=== PATIENT | male | born 1985 | race Caucasian/White ===

== ENCOUNTER 2019-09-12 10:11 | Emergency (ER) | payer OTHER ==
[~2019-09-12] VITALS: Ht 185.4 cm; Wt 72.7 kg
[2019-09-12 10:36] LABS: BASO % 0.4 % (0.0-1.0); EOS # 0.2 10^3/uL (0.0-0.5); EOS % 1.6 % (0.0-3.0); HEMATOCRIT 43.9 % (42.0-52.0); HEMOGLOBIN 14.6 g/dl (13.5-17.5); LYMPH % 17.9 % (24.0-44.0); MEAN CORPUSCULAR HEMOGLOBIN 29.9 pg (27.0-33.0); MEAN CORPUSCULAR HGB CONC 33.3 g/dl (32.0-36.5); MONO # 0.5 10^3/uL (0.0-0.8); MONO % 4.3 % (0.0-5.0); NEUTROPHILS # 8.3 10^3/uL (1.5-8.5); NEUTROPHILS % 75.5 % (36.0-66.0); PLATELET COUNT, AUTOMATED 186 10^3/uL (150-450); RED BLOOD COUNT 4.88 10^6/uL (4.30-6.10)
[2019-09-12 11:06] LABS: ALBUMIN 4.5 GM/DL (3.2-5.2); ALT/SGPT 22 U/L (12-78); BILIRUBIN,DIRECT 0.1 MG/DL (0.0-0.2); BILIRUBIN,TOTAL 0.3 MG/DL (0.2-1.0); BLOOD UREA NITROGEN 19 MG/DL (7-18); CALCIUM LEVEL 9.2 MG/DL (8.5-10.1); CARBON DIOXIDE LEVEL 30 MEQ/L (21-32); CHLORIDE LEVEL 105 MEQ/L (98-107); CK-MB VALUE MASS 2.1 NG/ML (<3.6); CPK CREATINE PHOSPHOKINASE 154 U/L (39-308); CREATININE FOR GFR 1.11 MG/DL (0.70-1.30); GLOMERULAR FILTRATION RATE > 60.0 (>60); GLUCOSE, FASTING 103 MG/DL (70-100); LIPASE 81 U/L (73-393); MB/CK RELATIVE INDEX 1.36 (< OR =4); POTASSIUM SERUM 4.1 MEQ/L (3.5-5.1); SODIUM LEVEL 138 MEQ/L (136-145); TOTAL PROTEIN 7.8 GM/DL (6.4-8.2); TROPONIN I < 0.02 NG/ML (< 0.10)
[2019-09-12] MEDS ORDERED: GI COCKTAIL 50ML BTL(HYOSCYAMINE/MAALOX/LIDOCAINE VISCOUS)(1:3:1) PO ONE (11:45)
--- NOTE | 2019-09-12 12:05 | REP ---
Portable chest x-ray: Two views presented. History: Chest pain. No comparison study. Findings: The lungs are well inflated and clear. Pleural angles are sharp. Heart size is normal. There is a mild dextroconvex thoracic curvature. There is an old healed displaced midshaft fracture of the left clavicle. Pulmonary vasculature is not increased. Impression: Old healed fracture left clavicle. No active disease. Electronically Signed by Edin Cochran MD 09/12/2019 11:56 A
[2019-09-12 13:25] LABS: CK-MB VALUE MASS 1.6 NG/ML (<3.6); CPK CREATINE PHOSPHOKINASE 128 U/L (39-308); MB/CK RELATIVE INDEX 1.25 (< OR =4); TROPONIN I < 0.02 NG/ML (< 0.10)
[2019-09-12] MEDS ORDERED: PROT1TAB2 PO (13:57)
[2019-09-12 14:00] VITALS: BP 146/66
--- NOTE | 2019-09-13 05:29 | ECGEPIP ---
[facility] - ED Test Date: 2019-09-12 Pat Name: YULIANA TORRES Department: Room: - Gender: Male Plan Consultant: [email or web address] : 1985 Requested By: Baudilio Allison Order Number: [id number] Reading MD: Baudilio Garcia Measurements Intervals [place] Rate: 82 P: 69 [place]: 149 QRS: 106 QRSD: 99 T: 64 QT: 356 QTc: 417 Interpretive Statements SINUS RHYTHM WITH SINUS ARRHYTHMIA RIGHT AXIS DEVIATION EARLY REPOLARIZATION NO PRIORS FOR COMPARISON Electronically Signed on 09-13-2019 5:29:10 EDT by Baudilio Garcia
--- NOTE | 2019-09-13 05:33 | ECGEPIP ---
[facility] - ED Test Date: 2019-09-12 Pat Name: YULIANA TORRES Department: Room: - Gender: Male Electrical Maintenance Engineer: [email or web address] : 1985 Requested By: Baudilio Allison Order Number: [id number] Reading MD: Baudilio Garcia Measurements Intervals [place] Rate: 47 P: 59 [place]: 150 QRS: 103 QRSD: 93 T: 69 QT: 409 QTc: 362 Interpretive Statements SINUS BRADYCARDIA RIGHT AXIS DEVIATION EARLY REPOLARIZATION SIMILAR TO PRIOR ON SAME DATE Electronically Signed on 09-13-2019 5:33:18 EDT by Baudilio Garcia
== END 2019-09-12 14:15 | disposition home or self-care (01) ==
LOC: EDBD 10:11 → M ED 10:11
DX: R07.89 Other chest pain (principal)